=== PATIENT | male | born 1935 | race Caucasian/White ===

== ENCOUNTER → 2023-05-23 13:04 | Outpatient (CLI) | payer OTHER, SELFPAY ==
[2023-05-23 14:52] LABS: Prostate Specific Antigen < 0.064 ng/mL (0.10-4.00)
== END ==
LOC: LAB 13:04
PROVIDERS: PCP Family Medicine; Referring Provider Urology; Visit Provider Urology
DX: C61 Malignant neoplasm of prostate (principal)
CPT/HCPCS: 36415; 84153

== ENCOUNTER → 2023-05-29 11:22 | Outpatient (CLI) | payer OTHER, SELFPAY ==
--- NOTE | 2023-05-29 11:24 | DI.RAD.S_ITS ---
PROCEDURE: XR CERVICAL SPINE 2V OR 3V INDICATIONS: pain x 2 mo TECHNIQUE: 3 view(s) of the cervical spine were acquired. COMPARISON: None. FINDINGS: CIS. Bones: No fractures or dislocations to the C6 The lateral masses of C1 appear intact on the odontoid view. No suspicious bony lesions. Degenerative changes are present including intervertebral disc space narrowing and Soft tissues: No prevertebral soft tissue swelling. IMPRESSION: Limited view. Degenerative change. No compression deformities or spondylolisthesis. Dictated by: Kyra Perkins M.D. on 05/29/2023 at 14:58 Approved by: Kyra Perkins M.D. on 05/29/2023 at 14:59
== END ==
LOC: RAD 11:23
PROVIDERS: PCP Family Medicine; Referring Provider Physician Assistant; Visit Provider Physician Assistant
DX: M47.812 Spondylosis without myelopathy or radiculopathy, cervical region (principal); M54.2 Cervicalgia
CPT/HCPCS: 72040

== ENCOUNTER 2023-07-29 13:45 | Outpatient (RCR) | payer OTHER, SELFPAY ==
--- NOTE | 2023-07-22 15:15 | PT.OIE ---
Current Diagnoses Stiffness of other specified joint, not elsewhere classified (07/22/23) Cervicalgia (07/22/23) Past Medical History (Last Updated 05/27/23 @ 15:03 by Randell Levi MD) Actinic keratosis Active medical problems: none Anemia Aortic valve stenosis, nonrheumatic Cardiac murmur Cataracts, bilateral (~2016) History of elevated PSA (~2018) History of kidney stones History of prostate cancer Hypothyroidism Left renal stone Lower urinary tract symptoms Medicare annual wellness visit, subsequent Oral cancer (~1982) Skin cancer Vitamin D deficiency Wears glasses Past Surgical History (Last Updated 07/10/23 @ 10:08 by Camille Gillis LPN) Anesthesia H/O right wrist surgery (~2004) H/O vasectomy History of cataract removal with insertion of prosthetic lens (~2016) History of cholecystectomy (~1984) History of oral surgery (~1983) History of radiation therapy (~2019) History of surgery (~2014) Hx of circumcision Hx of prostate biopsy S/P arthroscopic partial medial meniscectomy S/P arthroscopic surgery of right knee (~1985) Visit Care Team Role Provider Type Pancho Araujo MD Family Provider Physician Primary Care Provider Specialty: Family Practice Address: [address] [place] [address] Email: [email or web address] Nieves Alberto PA-C Attending Provider Advanced Galley Hand Referring Provider Specialty: Medical Wound Care Address: [address] [place] [address], [facility] Email: [email or web address] Physical Therapy Initial Evaluation PT-OP-A Visit Information Start: 07/22/23 15:01 Freq: Status: Active Protocol: Document 07/22/23 14:23 DCW (Rec: 07/22/23 15:09 DCW [id number]) Out-Patient Physical Therapy Visit Information Visit Information Visit Type Initial Evaluation Visit Start Time 14:23 Visit Stop Time 15:00 Visit Number 1 Number of WRITER Visits 0 Evaluation Information Evaluation Date 07/22/23 PT-OP-B Current Condition Start: 07/22/23 15:01 Freq: Status: Active Protocol: Document 07/22/23 14:23 DCW (Rec: 07/22/23 15:09 DCW [id number]) Current Condition History of Current Condition Onset Date Six month history Current Complaints Cervical neck stiffness History of Current Condition Pt is a 88 year old male presenting with a six month history of cervical stiffness and mild pain. Pt admits pain began after trying to sleep with various new pillows, feels it caused some changes in his positioning during the night. Has finally found a good pillow that works well for him, and his neck has been feeling better, but is still quite restricted with movement . Notes he is able to perform all his usual activities (golf , bowling) without any pain or difficulty, but is unable to properly turn to look at traffic with his neck stiffness, which worries him a little, because he doesn't want to give up driving. Does additionally note that he has a referral for knee pain, but that can wait, he only wants to focus on one thing at a time. PT-OP-C Subjective Start: 07/22/23 15:01 Freq: Status: Active Protocol: Document 07/22/23 14:23 DCW (Rec: 07/22/23 15:09 DCW [id number]) OP-PT Subjective Patient Comments Patient Comments I know for my age I'm in terrific shape, but that doesn 't mean I can't get better. Patient Reported Progress Improving Patient Questionnaires Neck Disability Index NDI Score 4/50 = 8% Quick Dash- Upper Extremity Quick Dash UE Score 2.27% Quick Dash UE Impairment 1 to 19% Impaired (Score 1-19) PT-OP-F Manual Assessment Start: 07/22/23 15:01 Freq: Status: Active Protocol: Document 07/22/23 14:23 DCW (Rec: 07/22/23 17:42 DCW [id number]) Manual Assessments Soft Tissue Assessment Soft Tissue Mobility Assessment Moderate tone with tenderness to palpation 2/4: Wincing and withdraw along R>L upper traps , scalenes, levator, SCM PT-OP-J Posture/Palpation/Skin Start: 07/22/23 15:01 Freq: Status: Active Protocol: Document 07/22/23 14:23 DCW (Rec: 07/22/23 17:42 DCW [id number]) Posture Evaluation Position Sitting Evaluation View Anterior Shoulder Posture (L) Elevated,(R) Elevated PT-OP-K Range of Motion Start: 07/22/23 15:01 Freq: Status: Active Protocol: Document 07/22/23 14:23 DCW (Rec: 07/22/23 17:42 DCW [id number]) Cervical Spine Range of Motion Cervical Spine Active Degrees Testing Position Sitting Flexion 35 Extension 25 Rotation Left 31 Rotation Right 26 Lateral Flexion Left 13 Lateral Flexion Right 15 ROM Limitations Soft Tissue Tightness,Muscle Tone PT-OP-L Special Tests Start: 07/22/23 15:01 Freq: Status: Active Protocol: Document 07/22/23 14:23 DCW (Rec: 07/22/23 17:42 DCW [id number]) Special Tests Cervical Spine Special Tests Spurling's Test Test Results Negative Slump Test Results Negative Passive Neck Flexion Test Results Negative Foraminal Compression Test Results Negative PT-OP-Q Treatments Start: 07/22/23 15:01 Freq: Status: Active Protocol: Document 07/22/23 14:23 DCW (Rec: 07/22/23 15:09 DCW [id number]) Therapeutic Exercises Sitting Exercises Scalene Stretch Sitting Exercise Name Anterior and posterior scalene stretches Side bilateral Reps/Minutes 30 hold Upper Trap Sitting Exercise Name Upper Trap stretch Side bilateral Reps/Minutes 30 hold PT-OP-T Assessment and Plan Start: 07/22/23 15:01 Freq: Status: Active Protocol: Document 07/22/23 14:23 DCW (Rec: 07/23/23 13:58 DCW [id number]) Physical Therapy Assessment Rehab Potential Rehabilitation Potential Excellent Evaluation Complexity Number of Personal Factors/Comorbidities 1-2 Number of Body Systems Impaired 1-2 Clinical Presentation at Evaluation Stable Impairments Impairments Activity Tolerance,Functional Activities,Functional Mobility ,Posture,ROM,Soft Tissue Mobility,Tone Goals Two Impairment Severely restricted cervical rotation (26? R, 31? L) [facility] Goal (LTG) Pt to demonstrate improvement with cervical ROM, improving cervical rotation to >45? bilaterally in order to improve ability to turn head to look for traffic while driving LTG Duration 09/22/23 One Impairment Pt does not have an appropriate home exercise program Short Term Goal (STG) Pt to be independent and compliant with an appropriate HEP STG Duration 08/22/23 Assessment Summary Assessment Pt presents with signs and symptoms consistent with referring diagnosis. Pt exhibits increased tone throughout cervical musculature, greatly restricting cervical ROM in all planes. Pt is otherwise very health and active, does not feel his neck stiffness impacts his ability to participate in his main hobbies of golf and bowling, however is worried that if it gets much worse, he'll not be able to drive, as it is already limiting his ability to turn his head to look for oncoming/merging traffic. Pt is very motivated to work independently, hoping to get appropriate stretches and strengthening exercises and not need to spend too much time coming in to PT. Additionally does have some complaints about his knee, so he is hoping to get through his neck PT and then restart with his knee. Should benefit from skilled therapy focusing on improving muscle tone, cervical ROM, and manual therapy. Physical Therapy Plan Frequency and Duration Frequency of Treatment 2x/Week Plan of Care Start Date 07/22/23 Plan of Care End Date 09/21/23 Therapeutic Interventions Therapeutic Interventions Home Exercise Program,Joint Mobilizations,Manual Therapy, Neuromuscular Re-education, Patient/Caregiver Education, Self-Care/Home Management,Soft Tissue Mobilization, Therapeutic Activities, Therapeutic Exercises Modalities Cold Pack/Ice Massage,Electric Stimulation,Hot Packs, Ultrasound Next Visit Focus/Plan Next Note Type Treatment Note Next Visit Plan STM, stretching, isometric cervical strengthening
--- NOTE | 2023-07-22 15:15 | PT.OPPOC ---
Physical, Occupational & Speech Therapy At [facility] Current Diagnoses Stiffness of other specified joint, not elsewhere classified (07/22/23) Cervicalgia (07/22/23) Visit Care Team Role Provider Type Pancho Araujo MD Family Provider Physician Primary Care Provider Specialty: Family Practice Address: [address] [place] [address], [id number] Email: [email or web address] Nieves Alberto PA-C Attending Provider Advanced Leather Heel Breaster Referring Provider Specialty: Medical Wound Care Address: [address] [place] [address], [id number] Email: [email or web address] Plan Of Care PT-OP-T Assessment and Plan Start: 07/22/23 15:01 Freq: Status: Active Protocol: Document 07/22/23 14:23 DCW (Rec: 07/23/23 13:58 DCW [id number]) Physical Therapy Assessment Rehab Potential Rehabilitation Potential Excellent Evaluation Complexity Number of Personal Factors/Comorbidities 1-2 Number of Body Systems Impaired 1-2 Clinical Presentation at Evaluation Stable Impairments Impairments Activity Tolerance,Functional Activities,Functional Mobility ,Posture,ROM,Soft Tissue Mobility,Tone Goals Two Impairment Severely restriced cervical rotation (26? R, 31? L) Electrician Rectifier Maintenance Goal (LTG) Pt to demonstrate improvement with cervical ROM, improving cervical rotation to >45? bilaterally in order to improve ability to turn head to look for traffic while driving LTG Duration 09/22/23 One Impairment Pt does not have an appropriate home exercise program Short Term Goal (STG) Pt to be independent and compliant with an appropriate HEP STG Duration 08/22/23 Assessment Summary Assessment Pt presents with signs and symptoms consistent with referring diagnosis. Pt exhibits increased tone throughout cervical musculature, greatly restricting cervical ROM in all planes. Pt is otherwise very health and active, does not feel his neck stiffness impacts his ability to participate in his main hobbies of golf and bowling, however is worried that if it gets much worse, he'll not be able to drive, as it is already limiting his ability to turn his head to look for oncoming/merging traffic. Pt is very motivated to work independently, hoping to get appropriate stretches and strengthening exercises and not need to spend too much time coming in to PT. Additionally does have some complaints about his knee, so he is hoping to get through his neck PT and then restart with his knee. Should benefit from skilled therapy focusing on improving muscle tone, cervical ROM, and manual therapy. Physical Therapy Plan Frequency and Duration Frequency of Treatment 2x/Week Plan of Care Start Date 07/22/23 Plan of Care End Date 09/21/23 Therapeutic Interventions Therapeutic Interventions Home Exercise Program,Joint Mobilizations,Manual Therapy, Neuromuscular Re-education, Patient/Caregiver Education, Self-Care/Home Management,Soft Tissue Mobilization, Therapeutic Activities, Therapeutic Exercises Modalities Cold Pack/Ice Massage,Electric Stimulation,Hot Packs, Ultrasound Next Visit Focus/Plan Next Note Type Treatment Note Next Visit Plan STM, stretching, isometric cervical strengthening Plan of Care Dates Plan of Care Start Date 07/22/23 Plan of Care End Date 09/21/23 Electronically Signed by: Gary Hernandez, PT 07/23/23 8154 If you are in agreement with this Plan of Care, please return a signed and dated copy. I have reviewed this Plan of Care and certify that the skilled therapy services above are required to meet the patient?s needs. Physician Signature Date Printed Name and Credentials Clinical Instructor Signature Printed Name and Credentials
--- NOTE | 2023-07-25 14:22 | PT.OTN ---
Current Diagnoses Stiffness of other specified joint, not elsewhere classified (07/25/23) Cervicalgia (07/25/23) Physical Therapy Treatment Note PT-OP-A Visit Information Start: 07/22/23 15:01 Freq: Status: Active Protocol: Document 07/25/23 13:45 DCW (Rec: 07/25/23 14:22 DCW [id number]) Out-Patient Physical Therapy Visit Information Visit Information Visit Type Treatment Note Visit Start Time 13:45 Visit Stop Time 14:15 Visit Number 2 Number of AEROTRIANGULATION SPECIALIST Visits 0 Evaluation Information Evaluation Date 07/22/23 PT-OP-B Current Condition Start: 07/22/23 15:01 Freq: Status: Active Protocol: Document 07/22/23 14:23 DCW (Rec: 07/22/23 15:09 DCW [id number]) Current Condition History of Current Condition Onset Date Six month history Current Complaints Cervical neck stiffness History of Current Condition Pt is a 88 year old male presenting with a six month history of cervical stiffness and mild pain. Pt admits pain began after trying to sleep with various new pillows, feels it caused some changes in his positioning during the night. Has finally found a good pillow that works well for him, and his neck has been feeling better, but is still quite restricted with movement . Notes he is able to perform all his usual activities (golf , bowling) without any pain or difficulty, but is unable to properly turn to look at traffic with his neck stiffness, which worries him a little, because he doesn't want to give up driving. Does additionally note that he has a referral for knee pain, but that can wait, he only wants to focus on one thing at a time. PT-OP-C Subjective Start: 07/22/23 15:01 Freq: Status: Active Protocol: Document 07/25/23 13:45 DCW (Rec: 07/25/23 14:22 DCW [id number]) OP-PT Subjective Patient Comments Patient Comments It hurts when I'm doing the stretching, but I can tell it' s getting better. PT-OP-F Manual Assessment Start: 07/22/23 15:01 Freq: Status: Active Protocol: Document 07/22/23 14:23 DCW (Rec: 07/22/23 17:42 DCW [id number]) Manual Assessments Soft Tissue Assessment Soft Tissue Mobility Assessment Moderate tone with tenderness to palpation 2/4: Wincing and withdraw along R>L upper traps , scalenes, levator, SCM PT-OP-J Posture/Palpation/Skin Start: 07/22/23 15:01 Freq: Status: Active Protocol: Document 07/22/23 14:23 DCW (Rec: 07/22/23 17:42 DCW [id number]) Posture Evaluation Position Sitting Evaluation View Anterior Shoulder Posture (L) Elevated,(R) Elevated PT-OP-K Range of Motion Start: 07/22/23 15:01 Freq: Status: Active Protocol: Document 07/22/23 14:23 DCW (Rec: 07/22/23 17:42 DCW [id number]) Cervical Spine Range of Motion Cervical Spine Active Degrees Testing Position Sitting Flexion 35 Extension 25 Rotation Left 31 Rotation Right 26 Lateral Flexion Left 13 Lateral Flexion Right 15 ROM Limitations Soft Tissue Tightness,Muscle Tone PT-OP-L Special Tests Start: 07/22/23 15:01 Freq: Status: Active Protocol: Document 07/22/23 14:23 DCW (Rec: 07/22/23 17:42 DCW [id number]) Special Tests Cervical Spine Special Tests Spurling's Test Test Results Negative Slump Test Results Negative Passive Neck Flexion Test Results Negative Foraminal Compression Test Results Negative PT-OP-Q Treatments Start: 07/22/23 15:01 Freq: Status: Active Protocol: Document 07/25/23 13:45 DCW (Rec: 07/25/23 14:22 DCW [id number]) Therapeutic Exercises Sitting Exercises Isometrics Sitting Exercise Name Cervical Isometrics Reps/Minutes 5 hold x5 Comments Flexion, Extension, Lat. Flexion, Rotation Manual Therapy Treatment Soft Tissue Mobilization Cervical Body Location R>L Parascapular musculature - UT, scalenes, SCM Mobilization Type Sustained Pressure,Trigger Point Release Body Position Supine PT-OP-T Assessment and Plan Start: 07/22/23 15:01 Freq: Status: Active Protocol: Document 07/25/23 13:45 DCW (Rec: 07/25/23 14:22 DCW [id number]) Physical Therapy Assessment Impairments Impairments Activity Tolerance,Functional Activities,Functional Mobility ,Posture,ROM,Soft Tissue Mobility,Tone Goals Two Impairment Severely restriced cervical rotation (26? R, 31? L) Spiritual Care Coordinator Goal (LTG) Pt to demonstrate improvement with cervical ROM, improving cervical rotation to >45? bilaterally in order to improve ability to turn head to look for traffic while driving LTG Duration 09/22/23 One Impairment Pt does not have an appropriate home exercise program Short Term Goal (STG) Pt to be independent and compliant with an appropriate HEP STG Duration 08/22/23 Assessment Summary Assessment Pt progressing very well already, ROM measured again today, has gained ~15? bilateral lateral flexion and 20? flexion. Happy with current HEP, pt is hoping to discharge after next visit if things continue to improve. Physical Therapy Plan Frequency and Duration Frequency of Treatment 2x/Week Plan of Care Start Date 07/22/23 Plan of Care End Date 09/21/23 Therapeutic Interventions Therapeutic Interventions Home Exercise Program,Joint Mobilizations,Manual Therapy, Neuromuscular Re-education, Patient/Caregiver Education, Self-Care/Home Management,Soft Tissue Mobilization, Therapeutic Activities, Therapeutic Exercises Modalities Cold Pack/Ice Massage,Electric Stimulation,Hot Packs, Ultrasound Next Visit Focus/Plan Next Note Type Treatment Note Next Visit Plan STM, stretching, isometric cervical strengthening
--- NOTE | 2023-07-29 14:04 | PT.OTN ---
Current Diagnoses Stiffness of other specified joint, not elsewhere classified (07/29/23) Cervicalgia (07/29/23) Physical Therapy Treatment Note PT-OP-A Visit Information Start: 07/22/23 15:01 Freq: Status: Active Protocol: Document 07/29/23 13:45 DCW (Rec: 07/29/23 14:04 DCW [id number]) Out-Patient Physical Therapy Visit Information Visit Information Visit Type Discharge Summary Visit Start Time 13:45 Visit Stop Time 14:01 Visit Number 3 Number of DIETETICS TEACHER Visits 0 Evaluation Information Evaluation Date 07/22/23 PT-OP-B Current Condition Start: 07/22/23 15:01 Freq: Status: Active Protocol: Document 07/22/23 14:23 DCW (Rec: 07/22/23 15:09 DCW [id number]) Current Condition History of Current Condition Onset Date Six month history Current Complaints Cervical neck stiffness History of Current Condition Pt is a 88 year old male presenting with a six month history of cervical stiffness and mild pain. Pt admits pain began after trying to sleep with various new pillows, feels it caused some changes in his positioning during the night. Has finally found a good pillow that works well for him, and his neck has been feeling better, but is still quite restricted with movement . Notes he is able to perform all his usual activities (golf , bowling) without any pain or difficulty, but is unable to properly turn to look at traffic with his neck stiffness, which worries him a little, because he doesn't want to give up driving. Does additionally note that he has a referral for knee pain, but that can wait, he only wants to focus on one thing at a time. PT-OP-C Subjective Start: 07/22/23 15:01 Freq: Status: Active Protocol: Document 07/29/23 13:45 DCW (Rec: 07/29/23 14:04 DCW [id number]) OP-PT Subjective Patient Comments Patient Comments Still feeling a little stiff, but I think it's feeling better. Has been compliant with his HEP, understands that it will be a long-term solution. PT-OP-F Manual Assessment Start: 07/22/23 15:01 Freq: Status: Active Protocol: Document 07/22/23 14:23 DCW (Rec: 07/22/23 17:42 DCW [id number]) Manual Assessments Soft Tissue Assessment Soft Tissue Mobility Assessment Moderate tone with tenderness to palpation /: Wincing and withdraw along R>L upper traps , scalenes, levator, SCM PT-OP-J Posture/Palpation/Skin Start: 07/22/23 15:01 Freq: Status: Active Protocol: Document 07/22/23 14:23 DCW (Rec: 07/22/23 17:42 DCW [id number]) Posture Evaluation Position Sitting Evaluation View Anterior Shoulder Posture (L) Elevated,(R) Elevated PT-OP-K Range of Motion Start: 07/22/23 15:01 Freq: Status: Active Protocol: Document 07/29/23 13:45 DCW (Rec: 07/29/23 14:01 DCW [id number]) Cervical Spine Range of Motion Cervical Spine Active Degrees Testing Position Sitting Flexion 44 Extension 30 Rotation Left 52 Rotation Right 51 Lateral Flexion Left 21 Lateral Flexion Right 20 ROM Limitations Soft Tissue Tightness,Muscle Tone PT-OP-L Special Tests Start: 07/22/23 15:01 Freq: Status: Active Protocol: Document 07/22/23 14:23 DCW (Rec: 07/22/23 17:42 DCW [id number]) Special Tests Cervical Spine Special Tests Spurling's Test Test Results Negative Slump Test Results Negative Passive Neck Flexion Test Results Negative Foraminal Compression Test Results Negative PT-OP-Q Treatments Start: 07/22/23 15:01 Freq: Status: Active Protocol: Document 07/29/23 13:45 DCW (Rec: 07/29/23 14:04 DCW [id number]) Manual Therapy Treatment Other Other Manual Treatments ROM testing, STM PT-OP-T Assessment and Plan Start: 07/22/23 15:01 Freq: Status: Active Protocol: Document 07/29/23 13:45 DCW (Rec: 07/29/23 14:04 DCW [id number]) Physical Therapy Assessment Impairments Impairments Activity Tolerance,Functional Activities,Functional Mobility ,Posture,ROM,Soft Tissue Mobility,Tone Goals Two Impairment Severely restriced cervical rotation (26? R, 31? L) Cross Tie Tram Loader Goal (LTG) Pt to demonstrate improvement with cervical ROM, improving cervical rotation to >45? bilaterally in order to improve ability to turn head to look for traffic while driving LTG Duration 09/22/23 One Impairment Pt does not have an appropriate home exercise program Short Term Goal (STG) Pt to be independent and compliant with an appropriate HEP STG Duration 08/22/23 Assessment Summary Assessment Pt showing improvement with ROM, feels comfortable with his HEP, has no further questions or concerns, requests discharge at this time. Understands he will require a new referral in order to return to PT in the future. Physical Therapy Plan Frequency and Duration Frequency of Treatment 2x/Week Plan of Care Start Date 07/22/23 Plan of Care End Date 09/21/23 Therapeutic Interventions Therapeutic Interventions Home Exercise Program,Joint Mobilizations,Manual Therapy, Neuromuscular Re-education, Patient/Caregiver Education, Self-Care/Home Management,Soft Tissue Mobilization, Therapeutic Activities, Therapeutic Exercises Modalities Cold Pack/Ice Massage,Electric Stimulation,Hot Packs, Ultrasound Next Visit Focus/Plan Next Note Type Treatment Note Next Visit Plan STM, stretching, isometric cervical strengthening
== END 2023-07-30 09:58 | disposition home or self-care (01) ==
LOC: PHYS 13:45
PROVIDERS: Family Provider Family Medicine; PCP Family Medicine; Referring Provider Physician Assistant; Visit Provider Physician Assistant
DX: M54.2 Cervicalgia (principal); M25.69 Stiffness of other specified joint, not elsewhere classified
CPT/HCPCS: 97110; 97140; 97161

== ENCOUNTER → 2023-11-13 13:52 | Outpatient (CLI) | payer OTHER, SELFPAY ==
[2023-11-13 17:51] LABS: Prostate Specific Antigen < 0.064 ng/mL (0.10-4.00)
== END ==
LOC: LAB 13:52
PROVIDERS: Family Provider Family Medicine; PCP Family Medicine; Referring Provider Urology; Visit Provider Urology
DX: C61 Malignant neoplasm of prostate (principal); Z92.3 Personal history of irradiation
CPT/HCPCS: 36415; 84153

== ENCOUNTER → 2023-11-14 15:55 | Outpatient (CLI) | payer OTHER, SELFPAY ==
--- NOTE | 2023-11-14 15:56 | DI.RAD.S_ITS ---
PROCEDURE: XR KUB INDICATIONS: Left lower pole renal calculus TECHNIQUE: One view of the abdomen acquired. COMPARISON: [facility], CT, CT ABDOMEN PELVIS WO CON, 12/12/2022, 12:14. [facility], CR, XR KUB, 11/26/2022, 12:10. FINDINGS: Surgical changes and devices: Cholecystectomy clips. Prostate fiducial markers or clips. Bowel: Bowel gas pattern is normal. Soft tissues: Small kidney stone at the inferior aspect of the left kidney. Possible adjacent additional kidney stone. No suspicious abdominal calcifications. Visualized solid organ contours appear normal in size. Lung bases are clear. Bones: No suspicious bony lesions. Levoscoliosis. IMPRESSION: Left kidney stone or stones at the inferior aspect of the kidney appear unchanged. Dictated by: Joe Gutierrez M.D. on 11/14/2023 at 18:30 Approved by: Joe Gutierrez M.D. on 11/14/2023 at 18:33
== END ==
LOC: RAD 15:56
PROVIDERS: Family Provider Family Medicine; PCP Family Medicine; Referring Provider Urology; Visit Provider Urology
DX: N20.0 Calculus of kidney (principal); Z87.442 Personal history of urinary calculi
CPT/HCPCS: 74018

== ENCOUNTER → 2024-01-14 15:53 | Outpatient (CLI) | payer OTHER, SELFPAY ==
--- NOTE | 2024-01-14 15:54 | DI.RAD.S_ITS ---
PROCEDURE: XR CHEST 2V INDICATIONS: Cough TECHNIQUE: 2 views of the chest were acquired. COMPARISON: [facility], CR, XR CHEST 2V, 04/10/2021, 8:52. FINDINGS: Heart, mediastinum and pulmonary vascular: Heart is normal in size and configuration. Mediastinum is unremarkable. Pulmonary vascular is normal. Lungs: Clear Pleural spaces: Normal-no effusions or pneumothorax. Bones and soft tissues: Normal IMPRESSION: Normal chest. Dictated by: Misael Thomas M.D. on 01/15/2024 at 13:26 Approved by: Misael Thomas M.D. on 01/15/2024 at 13:27
== END ==
LOC: RAD 15:54
PROVIDERS: Family Provider Family Medicine; PCP Family Medicine; Referring Provider Nurse Practitioner Family; Visit Provider Nurse Practitioner Family
DX: R05.9 Cough, unspecified (principal)
CPT/HCPCS: 71046